=== PATIENT | female | born 1995 | race Caucasian/White ===

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

== ENCOUNTER → 2017-01-01 | Outpatient (CLI) | payer BC ==
[2017-01-01 17:09] LABS: PREG INTERNAL NEGATIVE QC NEG CLEAR BACKGROUND; PREG INTERNAL POSITIVE QC POS CONTROL LINE
== END | disposition home or self-care (01) ==
LOC: C.LAB1850 15:15
PROVIDERS: ATTEND Physician Assistant
DX: N92.6 Irregular menstruation, unspecified (principal)

== ENCOUNTER 2017-05-02 11:35 | Emergency (ER) | payer BC ==
[~2017-05-02] VITALS: Ht 160 cm; Wt 55.3 kg
[2017-05-02 11:38] VITALS: TEMP 36.9; Ht 160 cm; Wt 55.3 kg
[2017-05-02 12:50] LABS: BASO % 0.3 %; BASO ABS # 0.02 K/uL (0-0.2); COMPLETE YES; EOS % 1.1 %; HEMATOCRIT 36.6 % (37-47); IG% 0.3 %; LYMPH % 21.2 %; LYMPH ABS # 1.52 K/uL (1.2-3.4); MEAN CORPUSCULAR HEMOGLOBIN 31.7 pg (25-34); MEAN CORPUSCULAR HGB CONC 34.4 g/dl (32-36); MEAN PLATELET VOLUME 10.7 fL (7.4-10.4); MONO % 14.3 %; NEUT % 62.8 %; PLATELET COUNT 180 K/uL (130-400); RED BLOOD COUNT 3.98 M/uL (4.2-5.4); WHITE BLOOD COUNT 7.18 K/uL (4.8-10.8)
[2017-05-02 13:06] LABS: BLOOD UREA NITROGEN 10 mg/dl (7-18); BUN/CREATININE RATIO 18.2 (10-20); CALCIUM 8.8 mg/dl (8.5-10.1); CARBON DIOXIDE 27 mmol/L (21-32); CHLORIDE 105 mmol/L (98-107); CREATININE 0.57 mg/dl (0.60-1.20); GLUCOSE 77 mg/dl (70-99); SODIUM 137 mmol/L (136-145)
--- NOTE | 2017-05-02 13:07 | DIAGNOSTIC IMAGING REPORT ---
CHEST 2 VIEWS ROUTINE CLINICAL HISTORY: Cough. Flu-like symptoms. COMPARISON STUDY: No previous studies for comparison. FINDINGS: Lung volumes are normal. No pneumothorax or pleural effusion is present. No consolidation is identified and there is no evidence of pulmonary edema. Cardiomediastinal silhouette is normal. IMPRESSION: No acute cardiopulmonary findings. Electronically signed by: Mark Lee M.D. 05/02/2017 1:06 PM Dictated Date/Time: 05/02/2017 1:05 PM
--- NOTE | 2017-05-02 13:33 | EMERGENCY ROOM VISIT NOTE ---
History First contact with patient: 11:54 Chief Complaint: ILLNESS Stated Complaint: SORE THROAT, SWOLLEN GLANDS, HEADACHE, VOMITING History of Present Illness The patient is a 21 year old female who presents to the Emergency Room with complaints of sore throat, swollen glands, coughing to the point that it makes her vomit. The patient states that about a month ago she started with the symptoms and called the [facility] for her insurance and they prescribed her a cough which did not work. She then went to [facility] about a month ago and was prescribed Z-Montez. The patient states that her symptoms never really got better. The patient is now complaining of increased sore throat and lymph nodes in her neck that are sore. She continues to have the cough. The patient denies any known fever, ear pain. The patient does admit to a lot of head congestion. She has been taking [id number] sinus medicine with little relief. Review of Systems 10 system review was performed and was negative unless stated otherwise history of present illness. Past Medical/Surgical History No significant past medical history Social History Smoking Status: Current Every Day Smoker Alcohol Use: none Drug Use: none Marital Status: single Housing Status: lives with family Occupation Status: unemployed Current/Historical Medications Unable to Obtain Active Prescriptions or Reported Meds Physical Exam Vital Signs Date Time Temp Pulse Resp B/P (MAP) Pulse Ox O2 Delivery O2 Flow Rate FiO2 05/02/17 11:38 36.9 87 20 123/72 94 Room Air Physical Exam PHYSICAL EXAM: Vital Signs were reviewed: Temperature 36.9, blood pressure 123/ 72, pulse 87, respiration rate 20 Reviewed Nurse's notes and agree. Oxygen saturation is 94 % on room air which is normal . GENERAL: 21-year-old female appears in no acute distress. MENTAL STATUS: Alert, oriented, coherent. EARS: Canals clear. TMs good light reflex, no erythema or fluid level noted. NOSE: Nasal mucosa with moderate erythema engorgement. Left side greater than right PHARYNX: Right tonsil with erythema and edema. There is small amount of exudate or possibly cryptic tonsil is noted on the right. Left tonsil is normal. There is no deviation of the uvula. Airway is adequate.. NECK: Supple , bilateral anterior cervical lymphadenopathy is noted which is tender to palpation. No posterior nodes noted LUNGS: Clear to auscultation without wheezes rales or rhonchi. CARDIAC: Regular rate and rhythm without murmur. SKIN : No rashes noted. Medical Decision & Procedures ER Provider Diagnostic Interpretation: CHEST 2 VIEWS ROUTINE CLINICAL HISTORY: Cough. Flu-like symptoms. COMPARISON STUDY: No previous studies for comparison. FINDINGS: Lung volumes are normal. No pneumothorax or pleural effusion is present. No consolidation is identified and there is no evidence of pulmonary edema. Cardiomediastinal silhouette is normal. IMPRESSION: No acute cardiopulmonary findings. Electronically signed by: Mark Lee M.D. 05/02/2017 1:06 PM Dictated Date/Time: 05/02/2017 1:05 PM Laboratory Results 05/02/17 12:29 Red Blood Count 3.98, Mean Corpuscular Volume 92.0, Mean Corpuscular Hemoglobin 31.7, Mean Corpuscular Hemoglobin Concent 34.4, Mean Platelet Volume 10.7, Neutrophils (%) (Auto) 62.8, Lymphocytes (%) (Auto) 21.2, Monocytes (%) (Auto) 14.3, Eosinophils (%) (Auto) 1.1, Basophils (%) (Auto) 0.3, Neutrophils # (Auto ) 4.51, Lymphocytes # (Auto) 1.52, Monocytes # (Auto) 1.03, Eosinophils # (Auto ) 0.08, Basophils # (Auto) 0.02 05/02/17 12:29 Test 05/02/17 12:11 05/02/17 12:29 Influenza Type A Antigen Neg for Influ A (NEG) Influenza Type B Antigen Neg for Influ B (NEG) White Blood Count 7.18 K/uL (4.8-10.8) Red Blood Count 3.98 M/uL (4.2-5.4) Hemoglobin 12.6 g/dL (12.0-16.0) Hematocrit 36.6 % (37-47) Mean Corpuscular Volume 92.0 fL (80-100) Mean Corpuscular Hemoglobin 31.7 pg (25-34) Mean Corpuscular Hemoglobin Concent 34.4 g/dl (32-36) Platelet Count 180 K/uL (130-400) Mean Platelet Volume 10.7 fL (7.4-10.4) Neutrophils (%) (Auto) 62.8 % Lymphocytes (%) (Auto) 21.2 % Monocytes (%) (Auto) 14.3 % Eosinophils (%) (Auto) 1.1 % Basophils (%) (Auto) 0.3 % Neutrophils # (Auto) 4.51 K/uL (1.4-6.5) Lymphocytes # (Auto) 1.52 K/uL (1.2-3.4) Monocytes # (Auto) 1.03 K/uL (0.11-0.59) Eosinophils # (Auto) 0.08 K/uL (0-0.5) Basophils # (Auto) 0.02 K/uL (0-0.2) RDW Standard Deviation 42.2 fL (36.4-46.3) RDW Coefficient of Variation 12.4 % (11.5-14.5) Immature Granulocyte % (Auto) 0.3 % Immature Granulocyte # (Auto) 0.02 K/uL (0.00-0.02) Anion Gap 5.0 mmol/L (3-11) Est Creatinine Clear Calc Drug Dose 131.3 ml/min Estimated GFR () > 150.0 Estimated GFR (Non- 134.4 BUN/Creatinine Ratio 18.2 (10-20) Calcium Level 8.8 mg/dl (8.5-10.1) Monoscreen NEG (NEG) ED Course The patient was evaluated. CBC differential, renal profile was ordered. Monospot was ordered. Rapid strep was negative, culture is pending. Rapid influenza was negative for influenza A and influenza B.. Chest x-ray was ordered interpreted by the radiologist and myself as above without any acute findings. CBC and differential and renal profile was unremarkable. Monospot was negative. The patient was informed of all findings and discharged home in stable condition. Medical Decision Differential diagnosis include strep pharyngitis, viral pharyngitis, URI, bronchitis, pneumonia, mono, influenza Impression Primary Impression: URI (upper respiratory infection) Additional Impression: Pharyngitis Departure Information Dispostion Home / Self-Care Condition GOOD Prescriptions Unable to Obtain Active Prescriptions or Reported Meds Referrals No Doctor, Assigned (PCP) Forms HOME CARE DOCUMENTATION FORM, IMPORTANT VISIT INFORMATION, WORK / SCHOOL INSTRUCTIONS Patient Instructions Common Cold - [facility], [facility], Sore Throat - [facility] Additional Instructions Follow sore throat handouts instructions. Push fluids, rest. Call in 24 hours for throat culture results. May continue [id number] symptomatic treatment for cold symptoms and fever. If symptoms persist or worsen, follow- up with your family doctor for reevaluation. Problem Qualifiers Primary Impression: URI (upper respiratory infection) URI type: unspecified viral URI Qualified Codes: J06.9 - Acute upper respiratory infection, unspecified; B97.89 - Other viral agents as the cause of diseases classified elsewhere Additional Impression: Pharyngitis Pharyngitis/tonsillitis etiology: unspecified etiology Qualified Codes: J02.9 - Acute pharyngitis, unspecified
[2017-05-02 13:35] VITALS: BP 100/64; PULSE 69; O2SAT 100
== END 2017-05-02 13:42 | disposition home or self-care (01) ==
LOC: C.EDB 11:37
DX: J02.9 Acute pharyngitis, unspecified (principal); B97.89 Other viral agents as the cause of diseases classified elsewhere; R05 Cough; R09.81 Nasal congestion; F17.200 Nicotine dependence, unspecified, uncomplicated